=== PATIENT | male | born 1980 | race Caucasian/White ===

== ENCOUNTER → 2017-02-28 14:28 | Day surgery (SDC) | payer OTHER ==
[~2017-02-28 14:28] MED LIST: Buffered Lidocaine 1% SYRIN* 3 ML/SYR SYRINGE INTRADERM ONE; Bupivacaine 0.25% SDV* 30 ML ONE; Dexamethasone IV* 4 MG/ML 1 ML (4 MG) IV SLOW PU ONE; Dexamethasone IV* 4 MG/ML 1 ML (4 MG) ONE; Famotidine IV* 10 MG/ML 2 ML (20 mg) IV ONE; Famotidine IV* 10 MG/ML 2 ML (20 mg) ONE; Ketorolac INJ* 30 MG/ML 1 ML VIAL ONE; Labetalol IV* 5 MG/ML 20 ML VIAL ONE; Lidocaine 2% PF* 5 ML VIAL ONE; Midazolam* 1 MG/ML 5 ML VIAL (5 MG) ONE; PROCHLORPERAZINE INJ 5 MG/ML 2 ML VIAL IV PRN; Propofol* 10 MG/ML 20 ML BTL IV PUSH ONE; ceFAZolin 2 GM PREMIX(*) 2 GM/50 ML BAG IVPB ONE; fentaNYL* 50 MCG/ML 2 ML VIAL (100 MCG VIAL) IV PRN; fentaNYL* 50 MCG/ML 2 ML VIAL (100 MCG VIAL) ONE; oxyCODONE/Acetamin 5/325 MG* TAB PO PRN
[2017-02-28 19:51] VITALS: BP 147/88
--- NOTE | 2017-03-01 21:42 | OP ---
DATE OF OPERATION: 02/28/17 - [facility] DATE OF : 78 SURGEON: Carson Carrillo MD CHRONOMETER REPAIRER: KELLY Obregon ANESTHESIOLOGIST: Dr. Frazier. ANESTHESIA: General. PRE-OP DIAGNOSES: 1. Right carpal tunnel syndrome. 2. Right cubital tunnel syndrome. 3. 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 POST-OP DIAGNOSES: 1. Right carpal tunnel syndrome. 2. Right cubital tunnel syndrome. 3. 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 OPERATIVE PROCEDURES: 1. Right open carpal tunnel release. 2. Right cubital tunnel release. 3. Decompression of the ulnar nerve with release of Guyon's canal. INDICATIONS: Lance is a 37-year-old male with clinical symptoms very consistent with ulnar nerve compression, but also with some tingling in the radial 3 digits. His symptoms have progressed despite nonoperative management and workup for other causes of numbness and tingling in the upper extremities. He has seen some neurologists including most recently Dr. Newell, who despite negative electrodiagnostic studies performed back in August, felt like he most definitely had peripheral nerve compression and referred him on to my office for dedicated hand surgical consultation. I agreed with Dr. Newell. On exam, he had significant numbness and tingling reproduced by testing for the ulnar nerve. Additionally, on carpal compression testing, he had significant numbness and tingling in the ring and small fingers and was quite sensitive over Guyon's canal. We had talked about risks and benefits. I had recommended open carpal tunnel release as well as Guyon's canal release as well as cubital tunnel release. He elected to proceed with surgery. EBL: 20 mL. COMPLICATIONS: None. FINDINGS: A large anconeus epitrochlearis muscle. DESCRIPTION OF PROCEDURE: Lance was seen in the preoperative holding area and the correct site, side, and procedure were identified. We came back to the operating room where anesthesia was induced. The arm was prepped and draped in the usual fashion. A formal time-out was performed. I began by making a standard longitudinal incision over the proximal thumb in the location for a carpal tunnel release. Dissection was carried down through the skin, subcutaneous tissue, and palmar fascia. The transverse carpal ligament was identified. I began the release distally and then continued proximally just off the radial aspect of the hook of the hamate. Once I got to the proximal aspect of the incision, I went ahead and placed the Harry retractor and retracted the skin and subcutaneous tissue superficially and the fat ulnarly. The rest of the transverse carpal ligament and distal antebrachial fascia was released with the tenotomy scissors. I checked and there was absolutely no compression on the nerve. The release was also checked distally and looked very good. At this point, I went ahead and identified the superficial palmar arch and followed this back to identify Guyon's canal. I used the tenotomy scissors to release the fascial roof of Guyon's canal. As I got proximal about the level of the wrist flexion crease and the proximal aspect of the incision, there were quite a few constrictive bands. It was difficult to directly visualize this and so I therefore extended the incision across the volar flexion crease in a Kay-type fashion, taking care not to cross the flexion creases at 90 degrees. The dissection was carried down. The constrictive bands were identified and released until there was no absolutely no compression on the ulnar nerve distally. I again inspected the decompression of the median and ulnar nerves and everything was nicely decompressed, so I irrigated the wound and closed the skin with some 4-0 nylon suture. Attention was then turned to the elbow. Incision was made centered over the cubital tunnel and extended proximally and distally in line with the ulnar nerve. Dissection was carried down through the subcutaneous tissue proximally with the Bovie. Distally, the tenotomy scissors were used and the medial antebrachial cutaneous nerve was identified and protected throughout the case. The nerve was quite buried under the large triceps muscle and then distally as it came into the cubital tunnel, a very large anconeus epitrochlearis was identified. I began the release distal to the anconeus epitrochlearis. The superficial fascia of the FCU was identified and released. The 2 heads of the FCU were split. The subfascial layer was released. Care was taken to protect the branches to the FCU muscle. Once the nerve was completely released distally , I came proximal to the anconeus epitrochlearis muscle and released the fascia overlying the nerve. This was released proximally all the way up into the arcade of [employer] which was released. The last step of the decompression was to release the anconeus epitrochlearis muscle. Once this was completely released, I got down to the deep fascial layer and this was released. At this point, there was absolutely no compression on the nerve. There was quite a bit of longitudinal vascular streaking on the ulnar nerve just under the anconeus epitrochlearis muscle. I went ahead and used the Bovie to excise a portion of the anconeus epitrochlearis muscle. At this point, we took care to cauterize any bleeders. Once we felt like we had adequate hemostasis, I irrigated the wound copiously and then the skin was reapproximated with 3-0 Polysorb and the skin was closed with 4-0 nylon suture. Marcaine 0.25% was infiltrated into all the operative areas. The wound was dressed with Xeroform, 4x4's and ABD on the elbows, sterile Webril and Jan wraps. Tourniquet was deflated at this point. The tourniquet had been inflated prior to making a skin incision. He was then woken up and taken to the recovery room. [id number]/[facility] #: [id number] FARHANA
== END | disposition home or self-care (01) ==
LOC: OR 14:28
PROVIDERS: ATTEND Orthopaedic Surgery Hand Surgery
DX: G56.01 Carpal tunnel syndrome, right upper limb (principal); G56.21 Lesion of ulnar nerve, right upper limb; F17.210 Nicotine dependence, cigarettes, uncomplicated
CPT/HCPCS: J0690; J1100; J1885; J2250; J2704; J3010

== ENCOUNTER 2017-07-09 13:20 | Emergency (ER) | payer OTHER ==
[2017-07-09 13:38] VITALS: BP 115/77
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
== END 2017-07-09 14:20 | disposition home or self-care (01) ==
LOC: UCCORT 13:20
DX: M25.512 Pain in left shoulder (principal); F17.210 Nicotine dependence, cigarettes, uncomplicated
CPT/HCPCS: 99212; G0463

== ENCOUNTER 2017-12-25 06:26 | Day surgery (SDC) | payer OTHER ==
[~2017-12-25 06:26] MED LIST changes: +Buffered Lidocaine 0.9% SYRIN* 5 ML/SYR SYRINGE INTRADERM ONE; -Buffered Lidocaine 1% SYRIN* 3 ML/SYR SYRINGE INTRADERM ONE; -Bupivacaine 0.25% SDV* 30 ML ONE; -Dexamethasone IV* 4 MG/ML 1 ML (4 MG) IV SLOW PU ONE; -Dexamethasone IV* 4 MG/ML 1 ML (4 MG) ONE; -Famotidine IV* 10 MG/ML 2 ML (20 mg) IV ONE; -Famotidine IV* 10 MG/ML 2 ML (20 mg) ONE; +Ibuprofen TAB* 400 MG ONE; +Ibuprofen TAB* 400 MG PO ONE; -Ketorolac INJ* 30 MG/ML 1 ML VIAL ONE; -Labetalol IV* 5 MG/ML 20 ML VIAL ONE; -Lidocaine 2% PF* 5 ML VIAL ONE; -Midazolam* 1 MG/ML 5 ML VIAL (5 MG) ONE; -PROCHLORPERAZINE INJ 5 MG/ML 2 ML VIAL IV PRN; -Propofol* 10 MG/ML 20 ML BTL IV PUSH ONE; +Sodium Citrate/Citric Acid* 15 ML UDC ONE; +Sodium Citrate/Citric Acid* 15 ML UDC PO ONE; -ceFAZolin 2 GM PREMIX(*) 2 GM/50 ML BAG IVPB ONE; -fentaNYL* 50 MCG/ML 2 ML VIAL (100 MCG VIAL) IV PRN; -fentaNYL* 50 MCG/ML 2 ML VIAL (100 MCG VIAL) ONE; -oxyCODONE/Acetamin 5/325 MG* TAB PO PRN
[2017-12-25] MEDS ORDERED: ceFAZolin 2 GM PREMIX (*) 2 GM/50 ML BAG IVPB ONE (06:27)
[2017-12-25] MEDS ORDERED: Bupivacaine 0.25% SDV* 30 ML ONE ×2 (07:28→09:30)
[2017-12-25] MEDS ORDERED: fentaNYL* 50 MCG/ML 2 ML VIAL (100 MCG VIAL) ONE ×4 (07:49→12:36)
[2017-12-25] MEDS ORDERED: Propofol* 10 MG/ML 20 ML BTL IV PUSH ONE (07:57)
[2017-12-25] MEDS ORDERED: Lidocaine 2% PF * 5 ML VIAL ONE (07:57)
[2017-12-25] MEDS ORDERED: oxyCODONE TAB* 5 MG TAB PO PRN (08:50)
[2017-12-25] MEDS ORDERED: DiMENhydriNATE IV* 50 MG/ML VIAL IV PUSH PRN (08:50)
[2017-12-25] MEDS ORDERED: HYDROmorphone INJ* 1 MG/ML CARPUJECT SYRINGE IV PRN (08:50)
[2017-12-25] MEDS ORDERED: Ondansetron INJ* 2 MG/ML VIAL IV PRN (08:50)
[2017-12-25] MEDS ORDERED: Naloxone* 0.4 MG/ML 1 ML VIAL IV PRN (08:50)
[2017-12-25] MEDS ORDERED: EPINEPHrine SYR 0.1 MG/ML* (1:10,000) SYRINGE ONE (09:30)
[2017-12-25] MEDS ORDERED: EPINEPHrine AMP 1 MG/ML ONE (09:33)
[2017-12-25] MEDS: fentaNYL* 50 MCG/ML 2 ML VIAL (100 MCG VIAL) IV PRN ×4 (12:29→12:58)
[2017-12-25] MEDS ORDERED: HYDROcodone/ACETAMIN 5-325 MG* 1 TAB ONE (12:46)
[2017-12-25 13:49] VITALS: BP 103/71
--- NOTE | 2017-12-26 05:16 | OP ---
DATE OF OPERATION: 12/25/17 - [facility] DATE OF : 78 SURGEON: Carson Carrillo MD THERAPEUTIC PROGRAM WORKER: KELLY Bella. An corporate law assistant was needed for the entirety of the procedure to aid in positioning of the arm and retraction. ANESTHESIOLOGIST: Dr. Wilson. ANESTHESIA: General. PRE-OP DIAGNOSES: 1. Left carpal tunnel syndrome. 2. Left cubital tunnel syndrome. 3. Left shoulder impingement syndrome and biceps tendonitis. 4. Left acromioclavicular degenerative joint disease and pain. POST-OP DIAGNOSES: 1. Left carpal tunnel syndrome. 2. Left cubital tunnel syndrome. 3. Left shoulder impingement syndrome and biceps tendonitis. 4. Left shoulder type 2 SLAP tear. 5. Left acromioclavicular degenerative joint disease and pain. OPERATIVE PROCEDURE: 1. Left shoulder arthroscopic partial synovectomy and debridement of type 2 SLAP lesion with arthroscopic biceps tenotomy. 2. Arthroscopic subacromial decompression and acromioplasty. 3. Left shoulder open distal clavicle excision. 4. Left shoulder subpectoral biceps tenodesis. 5. Left in-situ cubital tunnel release with excision of anconeus epitrochlearis muscle. 6. Left open carpal tunnel release. INDICATIONS: Lance is 37. I have previously done right carpal and cubital tunnel releases on him and he has done very, very well from these. The left side has really progressed and he decided a nerve decompression surgery on that side. Additionally, he had a pretty severe left shoulder pain for the last year. It has gotten significantly worse. He got quite a bit of relief with the biceps tendon injection and less so, but some relief with other prior injections. I told him that we would probably have to do something with the biceps. Additionally, told him we would do a decompression, I thought the rotator cuff was intact based off of his preoperative imaging. He wanted to proceed. I had offered him to do the surgery in 2 stages; however, due to some issues with needing time off work and restrictions and those types of issues, he wanted to see if we can get everything done at one time. ESTIMATED BLOOD LOSS: 50 mL. COMPLICATIONS: None. FINDINGS: There was a type 2 SLAP tear and a very extensive synovitis in the joint and the subacromial space. There was no rotator cuff tear. There was a fully red lipstick sign on the biceps tendon. DESCRIPTION OF PROCEDURE: Lance was seen in the preoperative holding area. The correct side, site, and procedure were identified. We came back to the operating room where he was placed supine on the beach chair with the hand table in place. The arm was prepped and draped in the usual fashion and a time- out was performed. I began by making a longitudinal incision in the palm and brought across the wrist flexion crease in Sal type fashion. Dissection was carried down to the subcutaneous tissue. The palmar fascia was opened. The transverse carpal ligament was released just off of the radial aspect to the hook of the hamate. The release was completed distally and proximally with the tenotomy scissors. Once there was absolutely no compression on the nerve, I irrigated out the wound and the skin was closed with 4-0 nylon suture. I then turned my attention to the elbow. The arm was abducted and externally rotated. I georgiana a curvilinear incision centered over Saez's ligament in line with the ulnar nerve. Dissection was carried down through the subcutaneous tissue. The medial antebrachial cutaneous nerve was protected. A very large anconeus epitrochlearis muscle was encountered. I started the release proximal to that and completed proximally past the arcade of [place]. I then came distally and excised the entirety of the anconeus epitrochlearis muscle. I then released the FCU fascia including the superficial and subfascial layers distally throughout the course of the FCU tendon and small neurolysis was performed. There was absolutely no subluxation of the nerve and the nerve was looking very decompressed. It clearly had been compressed underneath the anconeus epitrochlearis muscle. I, at this point, irrigated out the wound. Subcutaneous tissue was reapproximated with 3- 0 Vicryl. Skin was closed with 4-0 Monocryl and Steri-Strips. 0.25% Marcaine was infiltrated about the 2 incisions. Wounds were dressed with some Xeroform and some Tegaderms were placed over the wound. We then proceeded on to the shoulder portion of the procedure. We took down the drapes. We brought him up into upright position in the beach chair. The head and body were positioned appropriately. The arm was then scrubbed with the Betadine scrub and draped in the usual fashion. The stockinette was placed over the distal arm covering up the 2 distal wounds and then the arm was placed in a Jurado and Nephew spider device. After draping was completed, the shoulder was then ChloraPrep'd again. I started by making a posterior portal in a standard location, 2 cm inferior and medial to the posterior corner of the acromion. The joint was cannulated. The camera was introduced. Abundant synovitis was immediately present. Pretty much the entirety of the joint was red and inflamed. Using the outside-in technique, I developed an anterior portal and placed a cannula there. The probe was introduced. There was a type 2 SLAP tear seen on arthroscopy. There was a bright red lipstick sign on the biceps tendon when I pulled it out of the intertubercular groove and into the joint. The subscapularis was not torn. There were no loose bodies in the subscapularis recess. The articular cartilage on the glenoid and humeral head looked intact. The rotator cuff looked intact all the way back to the bare spot. I brought in the radiofrequency ablator and coagulated the abundant synovitis. I used a shaver to trim back the degenerative labrum superiorly. At this point, I contemplated whether or not to do a SLAP repair or to do a biceps tenotomy and a subpectoral biceps tenodesis. Ultimately given the very bright red lipstick sign on the biceps tendon, I decided to do the tenotomy. The biter was introduced into the wound and the tenotomy was performed right at the insertion of the biceps tendon on to the labrum. The shaver was then brought back in and debridement was completed. The trochar was then placed up in the subacromial space and I developed a lateral portal 2 cm inferior to the anterolateral margin of the acromion. The radiofrequency ablator and shaver brought in to excise a very thick subacromial bursitis. There were quite a few bleeders. I had to coagulate with the radiofrequency ablator. I took the bursectomy all the way back to the acromioclavicular joint. The CA ligament was preserved. I then brought in my sangeeta and performed an arthroscopic acromioplasty. The bursa was excised off the rotator cuff and this was inspected. There were no tears in the rotator cuff. This concluded the arthroscopic portion of the procedure. I then made a 2 cm incision right over the superior aspect of the acromioclavicular joint. Dissection was carried down through subcutaneous tissue. The superior AC ligaments were divided longitudinally and peeled back up the distal clavicle. 1 cm distal clavicle was excised using the sagittal saw. The ligaments were then closed with 2-0 Vicryl suture and the skin was closed with 4-0 nylon suture. Lastly, I externally rotated the arm somewhat and then made a 4 to 5 cm longitudinal incision right over the distal aspect of the pectoralis major tendon and over the intertubercular groove, dissection was carried down, the deltopectoral interval was opened up. The cephalic vein was taken laterally. This took me down to the biceps tendon, which was retrieved at the right angle. I used a Bovie to free up the soft tissue off the distal aspect of the intertubercular groove. Jurado and Nephew all-suture suture anchor was then drilled and placed in standard fashion. I used a free needle to then whipstitch both strands of the double loaded braided suture into the tendon in a standard fashion. These were then pulled down to the bone and tied off securing the biceps into the distal aspect of the intertubercular groove. There was excellent fixation of the tendon. The rest of the biceps stump was trimmed back with the Fowler scissors. The wound was then copiously irrigated. The deltopectoral fascia was closed with 2-0 Vicryl. Skin was closed with 4-0 nylon. As for the arthroscopy portals, they were all infiltrated with 0.25% Marcaine with epinephrine and then some additional 0.25% Marcaine was placed into the subacromial space. I had placed 0.25% Marcaine with epinephrine into the subacromial space prior to the beginning of the arthroscopic portion of the surgery. At this point, the wounds were dressed with Xeroform, 4x4s and ABD and the foam tape. The cubital tunnel wound was dressed with Steri-Strips, Xeroform, 4x4s, ABD, and an Jan wrap of the elbow and the carpal tunnel was dressed with Xeroform, 4x4, sterile Webril and an Jan wrap. There was excellent hemostasis at both distal wounds. The patient was woken up and taken to the recovery room in stable condition. [id number]/[facility] #: [id number] MTDD
== END 2017-12-25 13:49 | disposition home or self-care (01) ==
LOC: OREAST 06:26
PROVIDERS: ATTEND Orthopaedic Surgery Hand Surgery
DX: G56.02 Carpal tunnel syndrome, left upper limb (principal); G56.22 Lesion of ulnar nerve, left upper limb; M75.42 Impingement syndrome of left shoulder; M75.22 Bicipital tendinitis, left shoulder; M19.012 Primary osteoarthritis, left shoulder; M24.112 Other articular cartilage disorders, left shoulder; F17.210 Nicotine dependence, cigarettes, uncomplicated; F41.9 Anxiety disorder, unspecified
CPT/HCPCS: A9270-GY; C1776; J0171; J0690; J2704; J3010